=== PATIENT | female | born 1970 | race Hispanic/Latino ===

== ENCOUNTER 2019-03-10 12:23 | Outpatient (CLI) | payer BC ==
--- NOTE | 2019-03-10 15:43 | RAD ---
CHEST 1 VIEW: DATE: 03/10/2019. TIME: 12:47 p.m. HISTORY: Fatigue. FINDINGS: There are no previous exams for comparison. The heart size is normal. The aorta is tortuous. The lungs are expanded without focal areas of cons olidation, pneumothoraces, or pleural effusions. IMPRESSION: No radiographic evidence of acute cardiopulmonary process. POS: [facility]
== END 2019-03-10 12:24 | disposition home or self-care (01) ==
LOC: BICRAD 12:23
PROVIDERS: ATTEND Family Medicine
DX: R53.83 Other fatigue (principal)
CPT/HCPCS: 71045

== ENCOUNTER 2022-08-31 12:05 | Emergency (ER) | payer BC ==
[2022-08-31] MEDS ORDERED: Morphine 4 MG/ML VIAL ONE (12:31)
[2022-08-31] MEDS ORDERED: Ondansetron PF 4 MG/2 ML Vial ONE (12:31)
[2022-08-31 12:46] LABS: #Basophils 0.1 thou/uL (0.0-0.2); #Eosinphils 0.1 thou/uL (0.0-0.7); #Lymphocytes 1.5 thou/uL (1.20-3.40); #Monocytes 0.7 thou/uL (0.11-0.59); #Neutrophils 5.1 thou/uL (1.40-6.50); %Eosinophils 1.4 % (0.0-10.0); %Lymphocytes 20.6 % (21.0-51.0); Hemoglobin 9.7 g/dL (12.0-16.0); Mean Corpuscular HGB CONC 29.7 g/dL (32.0-36.0); Mean Corpuscular Hemoglobin 20.4 pg (27.0-31.0); Mean Corpuscular Volume 68.6 fL (78.0-98.0); Mean Platelet Volume 9.2 fL (7.4-10.4); Platelet Count 365 thou/uL (130-400); RBC Distribution Width 17.8 % (11.5-14.5); Red Blood Cell (RBC) Count 4.77 mill/uL (4.20-5.40); White Blood Cell (WBC) Count 7.5 thou/uL (4.8-10.8)
[2022-08-31 12:57] LABS: Bilirubin Negative (Negative); Blood, Urine Negative (Negative); Clarity Clear (Clear); Glucose, Urine (Dipstick) Normal (Negative); Ketone, Urine Negative (Negative); Leukocyte Negative Leu/uL (Negative); Nitrite Negative (Negative); Protein, Urine (Dipstick) Negative (Neg-Trace); Urobilinogen Normal mg/dL (Less than 2); pH, Urine 6.5 (5.0-9.0)
[2022-08-31 13:00] LABS: ALT (SGPT) 15 U/L (8-55); AST (SGOT) 15 U/L (5-34); Albumin 4.4 g/dL (3.5-5.0); Alkaline Phosphatase 106 U/L (40-110); Anion Gap 12 mmol/L (10-20); BUN (Urea Nitrogen) 9 mg/dL (9.8-20.1); Bilirubin, Total 0.4 mg/dL (0.2-1.2); Calc. Creatinine Clearance 0 mL/min (70-130); Calcium 9.4 mg/dL (7.8-10.44); Carbon Dioxide 24 mmol/L (22-29); Chloride 104 mmol/L (98-107); Estimated GFR 109; Globulin 3.8 g/dL (2.4-3.5); Glucose 89 mg/dL (70-105); Potassium 3.5 mmol/L (3.5-5.1); Protein, Total 8.2 g/dL (6.0-8.3); Sodium 136 mmol/L (136-145)
[2022-08-31 13:06] LABS: Anisocytosis SLIGHT = 6-15 cells (100X) (0-5/hpf); Hypochromia SLIGHT = 6-15 cells (100X) (0-5/hpf); MDiff Complete? YES; Microcytosis SLIGHT = 6-15 cells (100X) (0-5/hpf); Platelet Morphology Comment Appears Adequate; Polychromasia SLIGHT = 2-3 cells (100X) (0-2/hpf)
[2022-08-31] MEDS ORDERED: Iopamidol-370 76% 500 ML 1 ML ONE (15:29)
== END 2022-08-31 14:42 | disposition home or self-care (01) ==
LOC: ERS 12:05
DX: K50.00 Crohn's disease of small intestine without complications (principal)
CPT/HCPCS: 74177; 80053; 81003; 83605; 85025; 87086; 94760; 96374; 96375; J2270; J2405; Q9967